=== PATIENT | female | born 1955 | race Caucasian/White ===

== ENCOUNTER → 2018-04-04 15:13 | Outpatient (CLI) | payer MEDICARE, SELFPAY | PROVIDERS: Visit Provider Podiatrist | DX: B35.3 Tinea pedis (principal) | CPT/HCPCS: 87102; 87206; 87220 ==

== ENCOUNTER → 2018-05-30 13:46 | Outpatient (CLI) | payer MEDICARE, SELFPAY | PROVIDERS: Visit Provider Nurse Practitioner Family | DX: R30.0 Dysuria (principal) | CPT/HCPCS: 87086; 87088; 87186 ==

== ENCOUNTER 2019-05-30 14:00 | Outpatient (RCR) | payer MEDICARE, SELFPAY | END 2019-05-30 14:05 | disposition home or self-care (01) | LOC: PT 14:00 | PROVIDERS: PCP Emergency Medicine; Visit Provider Family Medicine | DX: M54.5 Low back pain (principal) | CPT/HCPCS: 97010; 97014; 97035; 97110; 97163; G0283 ==

== ENCOUNTER 2020-04-02 20:25 | Emergency (ER) | payer MEDICARE, MEDICAID, SELFPAY ==
[2020-04-02 20:39] VITALS: BP 147/88; PULSE 93; RESP 18; TEMP 37; O2SAT 97; BMI 24.6
[2020-04-02 20:42] VITALS: BP 147/88; PULSE 93; RESP 18; TEMP 37; O2SAT 97; BMI 24.6
--- NOTE | 2020-04-02 20:45 | HMH.EDUTC ---
[facility] Disposition Clinical Impression: Otitis externa Qualifiers: Otitis externa type: unspecified type Chronicity: unspecified Laterality: right Qualified Code(s): H60.91 - Unspecified otitis externa, right ear Disposition: Home, Self-Care Condition on Discharge: Good Instructions: Otitis Externa, DI for Otitis Externa, How to Use Ear Drops, How to Instill Ear Drops Additional Instructions: You was given remainder bottle of Neomycin and Polymyxin B sulfates and Hydrocortisone Suspension ear drops, 4 drops in right ear 3 times daily for 7 days Use ear wick as demonstrated to help get medication inside of ear if you are having problems Follow up with Family Doctor if no improvement or any worsening of symptoms Return if needed Straight to ER if any life threatening symptoms Referrals: Casie Yan [Primary Care Provider] - As needed Time of Disposition: 21:05 Medical Decision Making - Jason Inquiry Pt receiving controlled substance: No Jason was queried for this patient: No Vital Signs: 04/02/20 20:39 04/02/20 20:42 Temperature 98.6 F 98.6 F Temperature Source Oral Oral Pulse Rate [Right] 93 H 93 H Respiratory Rate 18 18 Blood Pressure [Right Arm] 147/88 H 147/88 H Blood Pressure Mean [Right Arm] 107 107 Blood Pressure Source [Right Arm] Automatic Cuff Automatic Cuff Blood Pressure Position [Right Arm] Sitting Sitting 02 Sat by Pulse Oximetry 97 97 Oxygen Delivery Method Room Air Room Air Medical Decision Narrative: Medication discussed with pharmacy to insure safety where TM could not be visualized and use of Cortisporin suspension instead of solution where TM not visible Medication obtained from ED and patient educated on how to apply ear drops, how to make wick and application Patient and family verbalized understanding Patient given remainder of bottle of ear drops to complete [address] [facility] HPI - General Stated complaint: Right ear pain Time Seen by Provider: 04/02/20 20:45 Mode of Arrival: Ambulatory Source of Information: Patient Limitations: No Limitations Description of Symptoms (Recalled from Triage Doc. by RN): Right ear pain started yesterday HEENT Symptoms (Recalled from RN notes): Yes Resp Symptoms (Recalled from RN notes): No Skin Symptoms (Recalled from RN notes): No MS Symptoms (Recalled from RN notes): No Functional Status (Recalled from RN notes): wnl - History of Present Illness Provider Complaint: Patient states that she has been having pain in her right ear since yesterday States that she has tried some peroxide in it and used some of the ear wax drops and nothing has helped State that she went to bible study earlier and it started throbbing so she came in to get it checked - Related Data Home Medications Medication Instructions Recorded Confirmed aspirin 81 mg tablet,delayed 81 mg PO DAILY tab 08/15/17 05/30/18 release Previous Rx's Medication Instructions Recorded urea 40 % topical cream 1 applic TOPICAL BID #60 applic 05/18/18 cetirizine 10 mg tablet 10 mg PO DAILY #30 tab 05/22/18 fluticasone propionate 50 1 spray INTRANASAL QDAY 30 Days 05/22/18 mcg/actuation nasal #9.9 g spray,suspension metoprolol tartrate 50 mg tablet 50 mg PO DAILY #90 tab 05/30/18 sulfamethoxazole 800 1 tab PO BID 10 Days #20 tab 05/30/18 mg-trimethoprim 160 mg tablet triamterene 37.5 1 tab PO DAILY #90 tab 07/19/18 mg-hydrochlorothiazide 25 mg tablet Allergies Allergy/AdvReac Type Severity Reaction Status Date / Time Penicillins [PENICILLINS] Allergy Unknown Verified 05/30/18 10:09 BEE,BUMBLE Allergy Unknown Uncoded 05/30/18 10:09 - Worker's Comp Is this a Worker's Comp case?: No [facility] History - Hepatitis A Screen Drug use history?: No High risk sexual behaviors?: No History of sexually transmitted infection?: No Currently employed?: No Childcare worker?: No Do you have indoor plumbing?: Yes Do you have electricity?: Yes Attestation statement:: Rola ortiz
[2020-04-02 20:54] VITALS: BP 147/88; PULSE 93; RESP 18; TEMP 37; O2SAT 97
== END 2020-04-02 21:06 | disposition home or self-care (01) ==
PROVIDERS: Emergency Provider Nurse Practitioner; PCP Family Medicine
DX: H60.91 Unspecified otitis externa, right ear (principal); F41.8 Other specified anxiety disorders
CPT/HCPCS: 99201

== ENCOUNTER 2020-12-14 20:01 | Emergency (ER) | payer MEDICARE, MEDICAID, SELFPAY ==
[2020-12-14 21:58] VITALS: BP 0/0; PULSE 0; RESP 0; TEMP -17.7; TEMP 0
== END 2020-12-14 21:59 | disposition left against medical advice (07) ==
LOC: ER 20:09
PROVIDERS: Emergency Provider Emergency Medicine; PCP Family Medicine
DX: Z53.21 Procedure and treatment not carried out due to patient leaving prior to being seen by health care provider (principal)
CPT/HCPCS: G0463; 99211

== ENCOUNTER 2021-07-02 12:48 | Emergency (ER) | payer MEDICARE, MEDICAID, SELFPAY ==
[2021-07-02 12:57] VITALS: BP 151/90; PULSE 83; RESP 17; TEMP 36.6; O2SAT 97; BMI 23.8
--- NOTE | 2021-07-02 12:59 | HMH.EDGENADL ---
ED Disposition Clinical Impression: Chalazion left upper eyelid Disposition: Home, Self-Care Condition on Discharge: Fair Instructions: DI for Chalazion Additional Instructions: Keflex as prescribed. Cool compresses 10 minutes 4 times a day. See Dr. Dillon at the [facility] tomorrow evening or Tuesday morning. Call tomorrow morning to make that appointment: [facility] [address] [place] [address] Prescriptions: cephALEXin [cephALEXin 500mg capsule*] 500 mg PO Q6H #28 cap Transmission Status: Pending to [id number] Referrals: Casie Yan [Primary Care Provider] - - Critical Care Critical Care Time: No Attestation: On , the high probability of a clinically significant, sudden or life threatening deterioration of the following system(s) required my full and direct attention, intervention and personal management. The time I documented below is in addition to time spent performing reported procedures but includes the following listed in this critical care notation. Medical Decision Making - Jason Inquiry Pt receiving controlled substance: No Vital Signs: 07/02/21 12:57 Temperature 97.8 F Temperature Source Oral Pulse Rate [Left Radial] 83 Respiratory Rate 17 Blood Pressure [Right Arm] 151/90 H Blood Pressure Mean [Right Arm] 110 02 Sat by Pulse Oximetry 97 Oxygen Delivery Method Room Air - Physician Consults Physician Consulted: Santana Time: 13:26 Reason -: Opthalmology Eval/Care Comment/Response: She has viewed an image of the patient's eye. She request patient be started on Keflex. Patient reports an allergy to penicillin, but says it only makes her sick with nausea and vomiting and she has taken Keflex in the past without problems. Also recommends cool compresses and follow-up in our office tomorrow evening or Tuesday morning. General Adult HPI - General Stated complaint: left eye swollen and red, no accident Time Seen by Provider: 07/02/21 12:59 - History of Present Illness HPI narrative: Complains of a swollen red left eyelid for 3 days. Denies any pain. States that it makes it hard to open up her eye, but otherwise no visual disturbance. No fever. No double vision. She tried to jose guadalupe it herself with a needle sterilized with alcohol but no pus was obtained. - Related Data Home Medications Medication Instructions Recorded Confirmed aspirin 81 mg tablet,delayed 81 mg PO DAILY tab 08/15/17 05/30/18 release Previous Rx's Medication Instructions Recorded urea 40 % topical cream 1 applic TOPICAL BID #60 applic 05/18/18 cetirizine 10 mg tablet 10 mg PO DAILY #30 tab 05/22/18 fluticasone propionate 50 1 spray INTRANASAL QDAY 30 Days 05/22/18 mcg/actuation nasal #9.9 g spray,suspension metoprolol tartrate 50 mg tablet 50 mg PO DAILY #90 tab 05/30/18 sulfamethoxazole 800 1 tab PO BID 10 Days #20 tab 05/30/18 mg-trimethoprim 160 mg tablet triamterene 37.5 1 tab PO DAILY #90 tab 07/19/18 mg-hydrochlorothiazide 25 mg tablet cephALEXin [cephALEXin 500mg 500 mg PO Q6H #28 cap 07/02/21 capsule*] Allergies Allergy/AdvReac Type Severity Reaction Status Date / Time Penicillins [PENICILLINS] Allergy Unknown Verified 05/30/18 10:09 BEE,BUMBLE Allergy Unknown Uncoded 05/30/18 10:09 [facility] History - Hepatitis A Screen Attestation statement:: This patient has been screened for Hepatitis A risk factors. I have reviewed the patient's past medical history: Yes Medical History: Reports:: Anxiety, Depression, Hypertension, Migraine Other Surgeries: Yes: Cholecystectomy, Hysterectomy-Total, Tubal Ligation, Other Amputation: No Fractures: No - Social History Smoking Status: Former smoker Alcohol Intake: never Alcohol Intake Frequency:: other Substance Use Type: denies use Occupational Status: other Housing: apartment Household Members: none - Psychiatric History Pschychiatric History:: Report
--- NOTE | 2021-07-02 13:07 | PC.NURSE ---
Dr Santana speaking to Dr Alves at [facility]
--- NOTE | 2021-07-02 13:35 | PC.NURSE ---
visual acuity L- 20/30 R- 20/40 Both- 20/30
[2021-07-02 13:57] VITALS: BP 144/87; PULSE 81; RESP 17; TEMP 36.6; O2SAT 97
== END 2021-07-02 14:00 | disposition home or self-care (01) ==
PROVIDERS: Emergency Provider Emergency Medicine; PCP Family Medicine
DX: H00.14 Chalazion left upper eyelid (principal); G43.709 Chronic migraine without aura, not intractable, without status migrainosus; F41.8 Other specified anxiety disorders; I10 Essential (primary) hypertension; Z88.0 Allergy status to penicillin
CPT/HCPCS: 99281; 99282

== ENCOUNTER 2022-09-11 16:24 | Emergency (ER) | payer MEDICARE, MEDICAID, SELFPAY ==
[2022-09-11 16:33] VITALS: BP 169/74; PULSE 82; O2SAT 97
[2022-09-11 16:40] VITALS: BP 169/74; PULSE 82; RESP 20; TEMP 36.4; O2SAT 97; BMI 25.0
--- NOTE | 2022-09-11 16:51 | XR_ITS ---
PROCEDURE INFORMATION: Exam: XR Chest Exam date and time: 09/11/2022 5:29 PM Age: 67 years old Clinical indication: Dyspnea; Additional info: SOA TECHNIQUE: Imaging protocol: Radiologic exam of the chest. Views: 1 view. COMPARISON: CR CXR CHEST(2 VIEWS-NOT PORTABLE) 01/20/2017 10:32 PM FINDINGS: Lungs: Unremarkable. No consolidation. Pleural spaces: Unremarkable. No pleural effusion. No pneumothorax. Heart/Mediastinum: Unremarkable. No cardiomegaly. Bones/joints: Unremarkable. IMPRESSION: No acute findings.
--- NOTE | 2022-09-11 16:53 | HMH.EDGENADL ---
Discharge Plan Disposition Patient Disposition: Home, Self-Care Chief Complaint: Shortness of Breath/Dyspnea Prescriptions Prescriptions: No Action omeprazole 20 mg capsule,delayed release(DR/EC) 20 mg PO DAILY rosuvastatin 5 mg tablet 5 mg PO DAILY Label Comments: TAKE 1 TABLET BY MOUTH ONCE DAILY clotrimazole-betamethasone 1-0.05 % cream 1 applic topical BID Qty: 45 1RF furosemide [Lasix] 20 mg tablet 20 mg PO DAILY Qty: 10 0RF lisinopril 20 mg tablet 20 mg PO DAILY Qty: 30 0RF Rx Instructions: Stop amlodipine aspirin [Adult Low Dose Aspirin] 81 mg tablet,delayed release (DR/EC) 81 mg PO DAILY Referrals Follow up/Referrals: Trav Alexandre MD [Primary Care Provider] - See instructions Activity Restrictions/Add. Instructions Additional Instructions/Restrictions: At this time was felt you are safe to be discharged home. If new or worsening symptoms please do not hesitate to return the emergency department. 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 Clinical Impressions Clinical Impression: Leg swelling Discharge ED Provider: Jeffery Weaver General Adult HPI General Chief complaint: Shortness of Breath/Dyspnea Stated complaint: SOA,Weakness,possible high blood pressure Time Seen by Provider: 09/11/22 16:45 Mode of Arrival: Ambulatory Source of Information: Patient Limitations: No Limitations Description of Symptoms (Recalled from ER Triage Doc. by RN): pt to ed c/o SOA and BLE swelling x3 days. pt states she seen her pcp and was told she has CHF and was started on lasix. pt states the lasix made her pee too much. History of Present Illness HPI narrative: Patient is a 67-year-old female with past medical history of hypertension who presents emergency department for evaluation of leg swelling. Over the last 4 days patient has noticed bilateral lower extremity swelling. Over months she has had dyspnea upon exertion. She denies chest pain, fevers, acute rashes or arthralgias, diarrhea, abdominal pain. Per chart review patient was instructed to stop amlodipine for which she states she has not taken amlodipine in 5 months, she takes lisinopril for her hypertension and was given Lasix for 10 days for which she has been compliant for the past 24 hours. She has had good urine output with Lasix administration. Due to persistent swelling she presents here for continued evaluation. Related Data Home Medications Medication Instructions Recorded Confirmed aspirin 81 mg tablet,delayed 81 mg PO DAILY 08/15/17 09/10/22 release (Adult Low Dose Aspirin) omeprazole 20 mg capsule,delayed 20 mg PO DAILY 08/11/22 09/10/22 release rosuvastatin 5 mg tablet 5 mg PO DAILY 08/11/22 09/10/22 Previous Rx's Medication Instructions Recorded clotrimazole-betamethasone 1 1 applic topical BID lesion #45 09/08/22 %-0.05 % topical cream grams furosemide 20 mg tablet (Lasix) 20 mg PO DAILY #10 tabs 09/10/22 lisinopril 20 mg tablet 20 mg PO DAILY #30 tabs 09/10/22 Allergies Allergy/AdvReac Type Severity Reaction Status Date / Time Penicillins [PENICILLINS] Allergy Unknown Verified 09/10/22 09:04 BEE,BUMBLE Allergy Unknown Uncoded 08/11/22 08:43 [facility] Disclaimer: The information contained in this section may have been updated after the patient was seen, as this information can be updated by other users. Medical History GERD (gastroesophageal reflux disease) Social History Smoking Status: Current every day smoker alcohol intake: never substance use type: denies use current occupational status: other Travel in the last 8 weeks: None household members: none housing: apartment ROS Obtained: Yes Systems reviewed as appropriate & no additional complaints except as documented Physical Exam General General appe
--- NOTE | 2022-09-11 16:55 | ECG_ITS ---
APPROVED REPORT Exam: Resting ECG HR:77 bpm ECG Measurements Heart Rate 77 AXES LA 190 P 50 QRSd 83 QRS 2 QT 386 T 40 QTc 418 Conclusion SINUS RHYTHM WITH SINUS ARRHYTHMIA Isolated Q in III BORDERLINE ECG UNCONFIRMED REPORT Electronically signed by : Bertram Finnegan MD 09/12/2022 13:39:12
[2022-09-11 17:00] VITALS: BP 165/90; PULSE 77; O2SAT 95
[2022-09-11 17:30] VITALS: BP 165/68; PULSE 78; O2SAT 96
[2022-09-11 17:53] LABS: Basophils % 0.3 % (0.1-2.0); Eosinophils # 0.2 K/mm3 (0.0-0.4); Eosinophils % 3.1 % (0.1-12.0); Hematocrit 40.9 % (37.0-47.0); Lymphocytes # 2.4 K/mm3 (0.7-4.5); Lymphocytes % 30.9 % (10-50); Mean Corpuscular HGB Conc 31.7 g/dL (31.8-35.4); Mean Corpuscular Hemoglobin 28.6 pg (27.0-31.2); Mean Corpuscular Volume 90.4 fl (81-99); Mean Platelet Volume 9.6 fl (7.4-10.4); Monocytes # 0.4 K/mm3 (0.1-1.0); Monocytes % 5.5 % (1.7-9.3); Neutrophils # 4.7 K/mm3 (1.8-7.8); Neutrophils % 60.2 % (37.0-80.0); Platelet Count 113 K/mm3 (142-424); Red Blood Count 4.53 M/mm3 (4.20-5.40); Red Cell Distribution Width 14.2 % (11.5-17.5); White Blood Count 7.9 K/mm3 (4.8-10.8)
[2022-09-11 18:01] LABS: Chloride 97 mmol/L (98-107); Potassium 4.7 mmoL/L (3.5-5.1); Sodium 137 mmol/L (136-145)
[2022-09-11 18:04] LABS: Alanine Aminotransferase 20 U/L (12-78); Albumin Level 4.2 g/dl (3.5-5.0); Albumin/Globulin Ratio 1.3 (1.1-1.8); Alkaline Phosphatase 80 U/L (38-126); Anion Gap 15.7 mEq/L (5-15); Aspartate Amino Transferase 37 U/L (14-36); Bilirubin,Total 0.8 mg/dl (0.2-1.3); Carbon Dioxide 29 mmol/L (22.0-30.0); Globulin 3.3 g/dL (1.3-3.2); Total Protein,Serum 7.5 g/dl (6.3-8.2)
[2022-09-11 18:05] LABS: Calcium 9.2 mg/dl (8.4-10.2); Glucose 88 mg/dl (74-100)
[2022-09-11 18:14] LABS: NT Pro Brain Natriuretic Pep. 23.6 pg/mL (0-125)
[2022-09-11 18:19] LABS: Blood Urea Nitrogen 22 mg/dl (7-17); Creatinine Clearance Estimated 55 mL/min (50-200); Estimated Glomerular Filt Rate 50 ml/min (>60); GFR (African American) 60 ML/MIN (>60)
[2022-09-11 18:20] LABS: Troponin I < 0.01 ng/ml (0.00-0.034)
[2022-09-11 19:21] VITALS: BP 162/79; PULSE 70; RESP 20; TEMP 36.4; O2SAT 96
== END 2022-09-11 19:22 | disposition home or self-care (01) ==
PROVIDERS: Emergency Provider Emergency Medicine; PCP Emergency Medicine
DX: R06.02 Shortness of breath (principal); R22.43 Localized swelling, mass and lump, lower limb, bilateral; F17.200 Nicotine dependence, unspecified, uncomplicated
CPT/HCPCS: 71045; 80053; 83880; 84484; 85025; 93005; 93308; 99285

== ENCOUNTER → 2022-09-23 11:05 | Outpatient (CLI) | payer MEDICARE, MEDICAID, SELFPAY ==
[2022-09-23 15:34] LABS: Anion Gap 18.5 mEq/L (5-15); Blood Urea Nitrogen 26 mg/dl (7-17); Calcium 9.5 mg/dl (8.4-10.2); Carbon Dioxide 25 mmol/L (22.0-30.0); Chloride 98 mmol/L (98-107); Estimated Glomerular Filt Rate 62 ml/min (>60); GFR (African American) 76 ML/MIN (>60); Glucose 93 mg/dl (74-100); Potassium 4.5 mmoL/L (3.5-5.1); Sodium 137 mmol/L (136-145)
== END ==
PROVIDERS: PCP Nurse Practitioner Family; Visit Provider Nurse Practitioner Family
DX: M79.89 Other specified soft tissue disorders (principal); R60.0 Localized edema
CPT/HCPCS: 80048

== ENCOUNTER 2022-10-27 13:32 | Emergency (ER) | payer MEDICARE, MEDICAID, SELFPAY ==
--- NOTE | 2022-10-27 13:29 | ECG_ITS ---
APPROVED REPORT Exam: Resting ECG HR:90 bpm ECG Measurements Heart Rate 90 AXES SC 165 P 60 QRSd 85 QRS 28 QT 347 T 53 QTc 395 Conclusion SINUS RHYTHM NORMAL ECG UNCONFIRMED REPORT Electronically signed by : Bertram Finnegan MD 10/29/2022 16:24:21
[2022-10-27 13:33] VITALS: BP 125/97; PULSE 89; RESP 16; TEMP 36.9; O2SAT 96; BMI 25.4
--- NOTE | 2022-10-27 14:00 | XR_ITS ---
FINAL REPORT CLINICAL HISTORY: sob COMPARISON: 09/11/2022 FINDINGS: SINGLE-VIEW CHEST The heart size is normal. The mediastinum is normal. The lungs are clear. There is no pneumothorax. IMPRESSION: No acute cardiopulmonary process. Reviewed, Interpreted and Dictated by Manuel Mcknight III, MD Transcribed by Farzana Stockton Authenticated and [facility]
--- NOTE | 2022-10-27 14:03 | HMH.EDGENADL ---
Discharge Plan Disposition Patient Disposition: Home, Self-Care Condition: Fair Chief Complaint: Chest Pain Prescriptions Prescriptions: No Action clotrimazole-betamethasone 1-0.05 % cream 1 applic topical BID Qty: 45 1RF furosemide [Lasix] 20 mg tablet 20 mg PO DAILY Qty: 10 0RF lisinopril 20 mg tablet 20 mg PO DAILY Qty: 30 0RF Rx Instructions: Stop amlodipine omeprazole 20 mg capsule,delayed release(DR/EC) 20 mg PO DAILY Qty: 90 0RF rosuvastatin 5 mg tablet 5 mg PO DAILY Qty: 90 0RF epinephrine 0.3 mg/0.3 mL syringe 0.3 mg SQ Q5-15M PRN (Reason: anaphylaxis) Qty: 2 2RF Rx Instructions: do not exceed 2 doses per episode aspirin [Adult Low Dose Aspirin] 81 mg tablet,delayed release (DR/EC) 81 mg PO DAILY azithromycin 250 mg tablet See Rx Instructions PO .COMPLEX Qty: 6 0RF Rx Instructions: For 250 mg dose pack: take 500 mg today (day 1), then 250 mg for 4 days (days 2-5) PO Referrals Follow up/Referrals: Trav Alexandre MD [Primary Care Provider] - See instructions Clinical Impressions Clinical Impression: Atypical chest pain Instructions Patient Instructions: DI for Atypical Chest Pain Discharge ED Provider: Silvestre Jones Adult HPI General Chief complaint: Chest Pain Stated complaint: chest pain Time Seen by Provider: 10/27/22 15:00 Mode of Arrival: Ambulatory Source of Information: Patient Limitations: No Limitations Description of Symptoms (Recalled from ER Triage Doc. by RN): pt to the ED with midsternal chest pain after getting into an arguement with her daughter. the pt stated she became upset and began to feel a pressure in her center chest. History of Present Illness HPI narrative: This is a 67-year-old white female with a history of GERD anxiety hypertension who presents to the emergency room with an episode of substernal chest pain described as pressure burning nonradiating. Patient said the pain started after getting into an argument with her daughter. There is no associated shortness of breath nausea vomiting or diaphoresis no orthopnea or pedal edema no fevers or chills. As I was talking to the patient she said her pain was getting better. Related Data Home Medications Medication Instructions Recorded Confirmed aspirin 81 mg tablet,delayed 81 mg PO DAILY 08/15/17 10/18/22 release (Adult Low Dose Aspirin) Previous Rx's Medication Instructions Recorded clotrimazole-betamethasone 1 1 applic topical BID lesion #45 09/27/22 %-0.05 % topical cream grams epinephrine 0.3 mg/0.3 mL 0.3 mg (0.3 mL) SQ Q5-15M PRN 09/27/22 injection syringe anaphylaxis #2 ea furosemide 20 mg tablet (Lasix) 20 mg PO DAILY #10 tabs 09/27/22 lisinopril 20 mg tablet 20 mg PO DAILY #30 tabs 09/27/22 omeprazole 20 mg capsule,delayed 20 mg PO DAILY #90 caps 09/27/22 release rosuvastatin 5 mg tablet 5 mg PO DAILY #90 tabs 09/27/22 azithromycin 250 mg tablet See Rx Instructions PO .COMPLEX #6 10/18/22 tabs Allergies Allergy/AdvReac Type Severity Reaction Status Date / Time Penicillins [PENICILLINS] Allergy Unknown Verified 10/18/22 14:02 BEE,BUMBLE Allergy Unknown Uncoded 10/18/22 14:02 [facility] Disclaimer: The information contained in this section may have been updated after the patient was seen, as this information can be updated by other users. Medical History (Updated 10/27/22 @ 16:00 by Silvestre Jones MD) Acute left otitis media GERD (gastroesophageal reflux disease) Impacted cerumen of left ear Social History Smoking Status: Current every day smoker alcohol intake: never substance use type: denies use current occupational status: other Travel in the last 8 weeks: None household members: none housing: apartment ROS Obtained: Yes All systems reviewed & no additional complaints except as documented Skin no rash or lesions HEENT no runny
[2022-10-27 14:05] VITALS: BP 146/83; PULSE 79; RESP 15; O2SAT 97
--- NOTE | 2022-10-27 14:05 | PC.NURSE ---
PT MEDICATED PER EMAR, UPDATED AT THIS TIME ON POC. NO NEEDS VOICED
[2022-10-27 14:11] LABS: Chloride 102 mmol/L (98-107)
[2022-10-27 14:12] LABS: Potassium 4.7 mmoL/L (3.5-5.1); Sodium 140 mmol/L (136-145)
[2022-10-27 14:14] LABS: Alanine Aminotransferase 27 U/L (12-78); Alkaline Phosphatase 87 U/L (38-126); Anion Gap 13.7 mEq/L (5-15); Aspartate Amino Transferase 39 U/L (14-36); Bilirubin,Total 0.4 mg/dl (0.2-1.3); Blood Urea Nitrogen 26 mg/dl (7-17); Carbon Dioxide 29 mmol/L (22.0-30.0); Creatinine Clearance Estimated 51 mL/min (50-200); Estimated Glomerular Filt Rate 45 ml/min (>60); GFR (African American) 54 ML/MIN (>60)
[2022-10-27 14:15] LABS: Albumin Level 4.5 g/dl (3.5-5.0); Albumin/Globulin Ratio 1.3 (1.1-1.8); Calcium 9.5 mg/dl (8.4-10.2); Globulin 3.6 g/dL (1.3-3.2); Glucose 109 mg/dl (74-100); Total Protein,Serum 8.1 g/dl (6.3-8.2)
[2022-10-27 14:16] LABS: Basophils % 0.4 % (0.1-2.0); Eosinophils # 0.2 K/mm3 (0.0-0.4); Eosinophils % 2.2 % (0.1-12.0); Hematocrit 42.6 % (37.0-47.0); Hemoglobin 13.4 g/dL (12.2-16.2); Lymphocytes # 2.3 K/mm3 (0.7-4.5); Lymphocytes % 25.2 % (10-50); Mean Corpuscular HGB Conc 31.6 g/dL (31.8-35.4); Mean Corpuscular Hemoglobin 28.6 pg (27.0-31.2); Mean Corpuscular Volume 90.6 fl (81-99); Mean Platelet Volume 7.6 fl (7.4-10.4); Monocytes # 0.5 K/mm3 (0.1-1.0); Monocytes % 5.3 % (1.7-9.3); Neutrophils # 6.1 K/mm3 (1.8-7.8); Neutrophils % 66.9 % (37.0-80.0); Platelet Count 275 K/mm3 (142-424); Red Blood Count 4.71 M/mm3 (4.20-5.40); Red Cell Distribution Width 13.9 % (11.5-17.5); White Blood Count 9.1 K/mm3 (4.8-10.8)
[2022-10-27 14:23] LABS: Troponin I < 0.01 ng/ml (0.00-0.034)
[2022-10-27 14:30] VITALS: BP 148/81; PULSE 84; RESP 14; O2SAT 94
[2022-10-27 14:59] VITALS: BP 147/95; PULSE 95; RESP 20; O2SAT 96
[2022-10-27 15:00] VITALS: BP 160/89; PULSE 95; RESP 18; O2SAT 96
[2022-10-27 16:06] VITALS: BP 160/89; PULSE 95; RESP 16; TEMP 36.7
== END 2022-10-27 16:10 | disposition home or self-care (01) ==
PROVIDERS: Emergency Provider Emergency Medicine; PCP Emergency Medicine
DX: R07.89 Other chest pain (principal); K21.9 Gastro-esophageal reflux disease without esophagitis; F41.9 Anxiety disorder, unspecified; F17.200 Nicotine dependence, unspecified, uncomplicated; I10 Essential (primary) hypertension
CPT/HCPCS: 71045; 80053; 83880; 84484; 85025; 93005; 99285

== ENCOUNTER → 2022-11-30 19:09 | Outpatient (CLI) | payer MEDICARE, MEDICAID, SELFPAY | PROVIDERS: PCP Emergency Medicine; Visit Provider Emergency Medicine | DX: R32 Unspecified urinary incontinence (principal); B96.29 Other Escherichia coli [E. coli] as the cause of diseases classified elsewhere | CPT/HCPCS: 87086; 87088; 87186 ==

== ENCOUNTER 2023-06-09 09:23 | Outpatient (CLI) | payer MEDICARE, MEDICAID, SELFPAY ==
[2023-06-09 09:42] LABS: Basophils # 0.1 K/mm3 (0-0.2); Basophils % 0.9 % (0.1-2.0); Eosinophils # 0.3 K/mm3 (0.0-0.4); Eosinophils % 4.1 % (0.1-12.0); Hematocrit 41.4 % (37.0-47.0); Hemoglobin 14.1 g/dL (12.2-16.2); Lymphocytes # 2.3 K/mm3 (0.7-4.5); Lymphocytes % 30.9 % (10-50); Mean Corpuscular HGB Conc 33.9 g/dL (31.8-35.4); Mean Corpuscular Hemoglobin 29.9 pg (27.0-31.2); Mean Corpuscular Volume 88.1 fl (81-99); Mean Platelet Volume 7.6 fl (7.4-10.4); Monocytes # 0.3 K/mm3 (0.1-1.0); Monocytes % 4.5 % (1.7-9.3); Neutrophils # 4.4 K/mm3 (1.8-7.8); Neutrophils % 59.6 % (37.0-80.0); Platelet Count 225 K/mm3 (142-424); Red Cell Distribution Width 14.3 % (11.5-17.5); White Blood Count 7.3 K/mm3 (4.8-10.8)
[2023-06-09 10:15] LABS: Chloride 103 mmol/L (98-107); Potassium 3.7 mmoL/L (3.5-5.1); Sodium 139 mmol/L (136-145)
[2023-06-09 10:17] LABS: Alanine Aminotransferase 20 U/L (12-78); Aspartate Amino Transferase 24 U/L (14-36); Blood Urea Nitrogen 15 mg/dl (7-17); Estimated Glomerular Filt Rate 55 ml/min (>60); GFR (African American) 67 ML/MIN (>60)
[2023-06-09 10:18] LABS: Albumin Level 4.1 g/dl (3.5-5.0); Alkaline Phosphatase 88 U/L (38-126); Anion Gap 10.7 mEq/L (5-15); Bilirubin,Direct 0.6 mg/dl (0.0-0.4); Bilirubin,Total 0.6 mg/dl (0.2-1.3); Calcium 9.8 mg/dl (8.4-10.2); Carbon Dioxide 29 mmol/L (22.0-30.0); Chol/HDL Ratio 2.3 (1-3.5); Cholesterol 153 mg/dl (140-200); Glucose 98 mg/dl (74-100); HDL Cholesterol 66 mg/dl (40-60); Magnesium 1.8 mg/dl (1.6-2.3); Total Protein,Serum 7.1 g/dl (6.3-8.2); Triglycerides 78 mg/dl (30-150); VLDL Cholesterol 16 mg/dL (0-40)
[2023-06-09 10:36] LABS: Direct LDL Cholesterol 66.14 mg/dL (100-129)
[2023-06-09 10:52] LABS: Thyroid Stimulating Hormone 0.82 uIU/mL (0.465-4.68)
== END 2023-06-09 23:59 ==
LOC: LAB 09:24
PROVIDERS: PCP Nurse Practitioner Family; Visit Provider Nurse Practitioner
DX: E78.5 Hyperlipidemia, unspecified (principal); I10 Essential (primary) hypertension; Z79.899 Other long term (current) drug therapy
CPT/HCPCS: 36415; 80048; 80061; 80076; 83735; 84439; 84443; 85025

== ENCOUNTER 2023-06-28 13:42 | Outpatient (CLI) | payer MEDICARE, MEDICAID, SELFPAY ==
--- NOTE | 2023-06-28 13:43 | CA_ITS ---
APPROVED REPORT EXAM: Comprehensive 2D, Doppler, and color-flow Echocardiogram Alkylation Operator: Krysta Marvin RVT Ht: 5 ft 6 in Wt: 145lbs BSA: 1.74 BP: 133/73 mmHg Indications: HTN,SMOKER,EDEMA,HLD,HTN 2D Dimensions LA Volume 29.60 mL LA Volume Index 16.91 mL/m2 (M/F) 16-34 M-Mode Dimensions RVDd 2.38 cm (0.9-2.6) LA Diam 3.34 cm (1.9-4.0) LVDd 3.79 cm (3.5-5.7) LVDs 2.50 cm (3.5-5.7) IVSd 1.09 cm (0.6-1.1) PWd 0.56 cm (0.6-1.1) EF (Teich) 63.80% FS 34.00% EDV (Teich) 61.60 mL TAPSE 2.22 (<1.7) ESV (Teich) 22.30 mL LV Diastology E Decel Time 243 (160-240 msec) E/A Ratio 0.7 Aortic Valve VALERI Index 1.15 cm2/m2 AoV Peak Alphonse. 138.0 (50-130 cm/s) AO Peak GR. 7.60 mmHg AO Mean GR. 5.10 (<5 mmHg) AO VTI 33.6 (18-25 cm) VALERI (VTI) 2.05 (2.5-4.5 cm2) Mitral Valve MV E Max Alphonse. 70.0 (40-130 cm/s) MV A Velocity 107.0 (40-130 cm/s) E/A Ratio 0.65 MV PHT 71.0 ms Pulmonary Valve PV Peak Velocity 85.0 (50-150 cm/s) Left Ventricle The left ventricle is normal size. The left ventricular systolic function is normal. The left ventricular ejection fraction is within the normal range. There is increased LV wall thickness. Proximal septal thickening is noted. There is normal LV segmental wall motion. Transmitral Doppler flow pattern suggests impaired LV relaxation. LVEF is 60%. Right Ventricle The right ventricle is normal size. The right ventricular systolic function is normal. Atria The left atrium size is normal. The right atrium size is normal. There is no Doppler evidence of interatrial shunt. Aortic Valve The aortic valve opens well. There is no aortic valvular stenosis. Trace aortic regurgitation. Mitral Valve The mitral valve is normal in structure. No evidence of mitral valve stenosis. Trace mitral regurgitation. Tricuspid Valve The tricuspid valve leaflets are thin and pliable. Trace tricuspid regurgitation. RVSP is normal. Pulmonic Valve The pulmonary valve is normal in structure. Trace pulmonic regurgitation. Great Vessels The aortic root is normal in size. IVC is normal in size and collapses >50% with inspiration. Pericardium There is no pericardial effusion. Other Information Study Quality: Fair Conclusion Normal biventricular systolic function. No significant valvular stenosis or regurgitation. Electronically signed by : Josefina Miller MD 06/29/2023 12:30:31
== END 2023-06-28 23:59 ==
LOC: RT 13:43
PROVIDERS: PCP Nurse Practitioner Family; Visit Provider Nurse Practitioner
DX: E78.5 Hyperlipidemia, unspecified (principal); I10 Essential (primary) hypertension; R94.31 Abnormal electrocardiogram [ECG] [EKG]
CPT/HCPCS: 93306

== ENCOUNTER 2025-04-22 16:19 | Outpatient (CLI) | payer MEDICARE, SELFPAY ==
--- NOTE | 2025-04-22 16:22 | XR_ITS ---
PROCEDURE INFORMATION: Exam: XR Left Ribs with PA Chest Exam date and time: 04/22/2025 4:23 PM Age: 70 years old Clinical indication: Injury or trauma; Fall; Rib area, left side; Blunt trauma; Additional info: L rib pain, fall TECHNIQUE: Imaging protocol: Radiologic exam of the left ribs with PA chest. Views: 3 views COMPARISON: CR XR CHEST PORTABLE 10/27/2022 2:30 PM FINDINGS: Lungs: Clear lungs Pleural spaces: No pleural effusion. No pneumothorax. Heart/Mediastinum: Heart size is normal. Bones/joints: No acute displaced rib fracture or other acute osseous abnormality. IMPRESSION: No acute displaced rib fracture.
== END 2025-04-22 23:59 | disposition home or self-care (01) ==
LOC: RAD 16:20
PROVIDERS: PCP Nurse Practitioner Family; Visit Provider Student in an Organized Health Care Education/Training Program
DX: R07.89 Other chest pain (principal); W19.XXXA Unspecified fall, initial encounter
CPT/HCPCS: 71101

== ENCOUNTER 2025-05-08 19:01 | Emergency (ER) | payer MEDICARE, SELFPAY ==
[2025-05-08 19:02] VITALS: BP 118/68; PULSE 66; RESP 16; TEMP 36.7; O2SAT 97; BMI 24.2
--- NOTE | 2025-05-08 19:22 | CT_ITS ---
PROCEDURE INFORMATION: Exam: CT Head Without Contrast Exam date and time: 05/08/2025 7:55 PM Age: 70 years old Clinical indication: Injury or trauma; Fall; Additional info: Fall, forehead lac TECHNIQUE: Imaging protocol: Computed tomography of the head without contrast. Radiation optimization: All CT scans at this facility use at least one of these dose optimization techniques: automated exposure control; mA and/or kV adjustment per patient size (includes targeted exams where dose is matched to clinical indication); or iterative reconstruction. COMPARISON: No relevant prior studies available. FINDINGS: Brain: No hemorrhage. No mass effect. Cerebral ventricles: No ventriculomegaly. Paranasal sinuses: Inflammatory changes in the sinuses. Mastoid air cells: Visualized mastoid air cells are well aerated. Bones: No acute fracture. Soft tissues: Mild left supraorbital soft tissue swelling IMPRESSION: No evidence of acute intracranial hemorrhage. COMMENTS: Please note that noncontrast head CT is not sensitive for the detection of ischemic infarct. If ischemic infarct is of clinical concern, additional imaging with CTA head/neck and brain MRI is recommended if capable.
--- NOTE | 2025-05-08 19:23 | ED_ITS ---
<Statement entered by Danni Ceja DO - 05/09/25 02:07> I was consulted by the MISSY, and we discussed the complexity of problems being addressed. I approve the treatment and management plan for this patient's care in the emergency department, thus performing a substantial portion of the medical decision making. Danni Ceja DO Discharge Plan Disposition Patient Disposition: Home, Self-Care Prescriptions Prescriptions: No Action epinephrine 0.3 mg/0.3 mL syringe 0.3 mg SQ Q5-15M PRN (Reason: anaphylaxis) Qty: 2 2RF Rx Instructions: do not exceed 2 doses per episode nitroglycerin 0.4 mg tablet, sublingual sublingual Patient Comments: DISSOLVE ONE TABLET UNDER THE TONGUE EVERY 5 MINUTES NEEDED FOR CHEST PAIN. DO NOT EXCEED A TOTAL OF 3 DOSES IN 15 MINUTES hydrochlorothiazide 12.5 mg tablet 12.5 mg PO DAILY Qty: 90 2RF losartan 100 mg tablet 100 mg PO DAILY Qty: 90 3RF omeprazole 20 mg capsule,delayed release(DR/EC) See Rx Instructions .ROUTE .COMPLEX Qty: 90 3RF Dose Instruction: Take 1 capsule by mouth once daily Rx Instructions: Take 1 capsule by mouth once daily rosuvastatin 5 mg tablet See Rx Instructions .ROUTE .COMPLEX Qty: 90 2RF Dose Instruction: Take 1 tablet by mouth once daily Rx Instructions: Take 1 tablet by mouth once daily sumatriptan succinate [Imitrex] 50 mg tablet See Rx Instructions PO .COMPLEX Qty: 9 2RF Rx Instructions: take 1 tab at onset of headache; if no relief may repeat 1 tab after at least 2 hrs; max = 4 tabs/24 hr PO aspirin [Adult Low Dose Aspirin] 81 mg tablet,delayed release (DR/EC) 81 mg PO DAILY Qty: 90 2RF lidocaine 5 % adhesive patch,medicated 1 patch topical DAILY Qty: 15 0RF Rx Instructions: leave on most painful area for up to 12 hrs escitalopram oxalate [Lexapro] 10 mg tablet 10 mg PO DAILY Qty: 90 2RF Referrals Follow up/Referrals: Kendrick Lynch APRN [Primary Care Provider, Family Practice] - See instructions Clinical Impressions Clinical Impression: Fall Print Language Print Language: [place] Discharge ED Provider: Danni Ceja General Adult HPI General Chief complaint: Fall Stated complaint: fell and has lasceration to forehead and nose Time Seen by Provider: 05/08/25 19:12 History of Present Illness HPI narrative: Leanna De La Rosa is a 70-year-old female who presents emergency room tonight with complaints of a fall. Patient was looking at [place] lights this evening, tripped, fell, and hit her forehead on the concrete. Has an abrasion to her forehead, mild bruising to her nose. Nose has no pain. Patient denies any LOC. Does take an aspirin daily. No neck or back pain. Has absolutely no other pain complaints anywhere else. No vision changes, no blurry vision. No weakness, no unilateral numbness, tingling. No focal neurodeficits, no facial droop. Denies any dizziness or lightheadedness prior to the event, no syncopal events noted. Does complain of some pain at her forehead. Complains of a mild headache. No other complaints at this time. Related Data Home Medications ?Medication ?Instructions ?Recorded ?Confirmed nitroglycerin 0.4 mg sublingual mg sublingual 06/02/23 04/22/25 tablet Previous Rx's ?Medication ?Instructions ?Recorded epinephrine 0.3 mg/0.3 mL 0.3 mg (0.3 mL) SQ Q5-15M IL N 09/27/22 injection syringe anaphylaxis #2 ea aspirin 81 mg tablet,delayed 81 mg PO DAILY #90 tabs 0 01/29/25 release (Adult Low Dose Aspirin) hydrochlorothiazide 12.5 mg tablet 12.5 mg PO DAILY #9 0 tabs 01/29/25 losartan 100 mg tablet 100 mg PO DAILY #90 tabs omeprazole 20 mg capsule,delayed See Rx Instructions . Route 01/29/25 release .COMPLEX #90 caps rosuvastatin 5 mg tablet See Rx Instructions .Route 0 01/29/25 .COMPLEX #90 tabs sumatriptan succinate 50 mg tablet See Rx Instructions PO .COMPLEX #9 01/29/25 (Imitrex) tabs lidocaine 5 % topical patch 1 patch topical DAILY #15 ea 04/22/25 escitalopram oxalate 10 mg tablet 10 mg PO DAILY #90 t abs 04/23/25 (Lexapro) Allergies Allergy/AdvReac Type Severity Reaction Status Date / Time bee venom protein (honey bee) Allergy Severe Anaphylaxis Verified 04/22/25 15:49 Penicillins (PENICILLINS) Allergy Unknown Unknown Verified 04/22/25 15:49 allergy reaction doxycycline AdvReac Mild Vomiting Verified 04/22/25 15:49 [facility] Disclaimer: The information contained in this section may have been updated after the patient was seen, as this information can be updated by other users. Social History Smoking Status: Never smoker alcohol intake: never substance use type: denies use current occupational status: other Travel in the last 8 weeks?: None household members: none housing: apartment Have you lived/traveled outside US in past 30 days?: No Contact w/someone who lives/traveled outside US past 30 days?: No Exposure to someone with infectious disease in past 14 days?: No Do you have a fever (greater than 100.4 F or 38 C)?: No Have you tested positive for COVID-19?: No Exposed to someone with COVID-19 in past 14 days?: No Do you have a sore throat?: No Do you have a cough?: No Do you have any weakness?: No Do you have any diarrhea?: No Are you experiencing any unusual bleeding?: No Do you have any muscle aches/pain?: No Do you have any abdominal pain?: No Are you experiencing loss of taste or smell?: No Other Medical History Have you received the Flu Vaccine for this season: No Have you received the Pneumonia Vaccine: Yes ROS Obtained: Yes All systems reviewed & no additional complaints except as documented Physical Exam General General appearance: alert and in no apparent distress Head Head exam: other (Superficial abrasion and ecchymosis noted to the left forehead) Eye Eye exam: Present normal appearance, PERRL and EOMI ENT ENT exam: Present normal exam, normal oropharynx, mucous membranes moist, TM's normal bilaterally, normal external ear exam and other (Mild ecchymosis noted to the bridge of the nose from hitting the concrete with her glasses in place, nose is not tender to palpation) Neck Neck exam: Present normal inspection, full ROM and trachea midline; Absent meningismus or lymphadenopathy Chest Chest inspection: Present normal inspection and symmetric chest wall rise; Absent tenderness Respiratory Respiratory exam: Present normal lung sounds bilaterally; Absent respiratory di stress Cardiovascular Cardiovascular exam: Present regular rate and normal rhythm; Absent JVD Abdominal Exam Abdominal exam: Present soft and normal bowel sounds; Absent distention, tenderness or guarding Extremities Exam Extremities exam: Present normal inspection, full ROM and normal capillary refill; Absent calf tenderness Back Exam Back exam: Present normal inspection; Absent tenderness Neurological Exam Neurological exam: Present alert and oriented X3 Psychiatric Psychiatric exam: Present normal affect and normal mood Lymphatic Lymphatic Findings: no adenopathy Medical Decision Making Medical Records Screening: Per USPSTF and CDC recommendations, given the prevalence of disease in our region, it is our hospital?s policy to screen for HIV and viral Hepatitis for all patients aged 18 and over and those with ongoing risk factors. Jason Inquiry Pt receiving controlled substance: No Vital Signs: 05/08/25 19:02 Temperature 98.1 F Temperature Source Oral Pulse Rate [Right] 66 Respiratory Rate 16 Blood Pressure [Right Arm] 118/68 Blood Pressure Mean [Right Arm] 84 Blood Pressure Source [Right Arm] Automatic Cuff Blood Pressure Position [Right Arm] Sitting 02 Sat by Pulse Oximetry 97 Oxygen Delivery Method Room Air Orders (Tests/Meds): ORDERS Category Date Time Status CT head/brain wo con Stat Cat Scan 05/08/25 19:22 Completed Medical Decision Narrative: In summary patient is an 70-year-old female who presents emergency department for evaluation of mechanical fall striking her head. Patient is hemodynamically stable upon arrival, afebrile. Unremarkable nonfocal physical exam except for an abrasion to her left forehead with some ecchymosis, ecchymosis noted to the bridge of her nose. Differential diagnosis includes facial fracture, subdural hematoma, subarachnoid hemorrhage. Initial workup will be conducted with CT of the head without contrast. Initial interventions include multimodal pain management. Initial workup reviewed by me CT of the head unremarkable for intracranial hemorrhage. Lab work was considered but patient did not have a syncopal epi sode, no complaint of fever, cough, chest pain, shortness of breath. Simply tripped and fell, does take aspirin daily. Upon repeat evaluation patient continues to be pain-free, not complaining of a headache, blurry vision, double vision. No complaints noted at this time.. Given this patient appropriate for discharge at this time. Can take any Motrin or Tylenol for discomfort. Strict return precautions were given. Critical Care Critical Care Time Critical Care Time: No
--- OUTSIDE RECORDS SUMMARY | 2025-05-08 19:30 | XMS_ITS | Clinical Summary ---
Author Organization Healthcare Address [address] [place] [address] Care Team Providers Care Manager Of Organizational Development Name Role Phone Trini Sarmiento APRN Primary Care Provider Social History Tobacco Use Types Packs/Day Years Used Date Smoking Tobacco: Every Day Alcohol Use Standard Drinks/Week Comments Yes 0 (1 standard drink = 0.6 oz pure alcohol) Alcoholic Drinks/day: Social alcohol use Comments Unknown Sex and Gender Information Value Date Recorded Sex Assigned at Not on file Legal Sex Female 8:56 PM EDT Gender Identity Not on file Sexual Orientation Not on file Last Filed Vital Signs Vital Sign Reading Time Taken Comments Blood Pressure - - Pulse - - Temperature - - Respiratory Rate - - Oxygen Saturation - - Inhaled Oxygen Concentration - - Weight 62.3 kg (137 lb 6 oz) 04/18/2013 8:51 AM EST Height 165.1 cm (5' 5 ) 04/18/2013 8:51 AM EST Body Mass Index 22.86 04/18/2013 8:51 AM EST Plan of Treatment Not on file Care Teams Manager Of Organizational Development Relationship Specialty Start Date End Date Trini Sarmiento APRN [address] [place] [address] PCP - General 09/26/20
--- OUTSIDE RECORDS SUMMARY | 2025-05-08 19:30 | XMS_ITS | Encounter Summary ---
Author Organization [facility] Address [address] [place] [address] Care Team Providers Care Film Processing Utility Worker Name Role Phone Trav Alexandre MD Primary Care Provider [phone] Encounter Details Date Type Department Care Team (Late st Contact Info) Description 12/19/2014 External CPT II WRAPPER COUNTER - [facility] Social History Tobacco Use Types Packs/Day Years Used Date Smoking Tobacco: Never Assessed Comments Unknown Sex and Gender Information Value Date Recorded Sex Assigned at Not on file Legal Sex Female 1:31 PM EDT Gender Identity Not on file Sexual Orientation Not on file documented as of this encounter Plan of Treatment Not on file documented as of this encounter Visit Diagnoses Not on filedocumented in this encounter Care Teams Film Processing Utility Worker Relationship Specialty Start Date End Date Trav Alexandre MD [address] [id number] PCP - General Emergency Medicine 10/21/22 documented as of this encounter
--- OUTSIDE RECORDS SUMMARY | 2025-05-08 19:30 | XMS_ITS | Encounter Summary ---
Author Organization [facility] Address [address] [place] [address] Care Team Providers Care Hot Strip Finisher Name Role Phone Trav Alexandre MD Primary Care Provider [phone] Encounter Details Date Type Department Care Team (Late st Contact Info) Description 05/25/2013 External CPT II JEWELRY FACER - [facility] Social History Tobacco Use [...] on filedocumented in this encounter Care Teams Hot Strip Finisher Relationship Specialty Start Date End Date Trav Alexandre MD [address] [id number] PCP - General Emergency Medicine 10/21/22 documented as of this encounter
--- OUTSIDE RECORDS SUMMARY | 2025-05-08 19:31 | XMS_ITS | Clinical Summary ---
Author Organization [facility] Address [address] [place] [address] Care Team Providers Care Letterer Name Role Phone Trav Alexandre MD Primary Care Provider [phone] Allergies Active Allergy Reactions Criticality Noted Date Comments Amoxicillin Unknown - Low Severity Low 10/21/2022 Ciprofloxacin Nausea And Vomiting Low 03/29/2019 Penicillins Unknown - Low Severity Low 10/21/2022 Statins Nausea And Vomiting Low 03/29/2019 Medications rosuvastatin (CRESTOR) 5 MG tablet Take 1 tablet by mouth Daily. 09/27/2022 Active omeprazole (priLOSEC) 20 MG capsule Take 1 capsule by mouth Daily. 09/27/2022 Active aspirin 81 MG EC tabletIndication s:Coronary artery disease involving [place] coronary artery of [place] heart, unspecified whether angina present Take 1 tablet by mouth Daily. 90 tablet 3 02/06/2023 Active lisinopril (PRINIVIL,ZESTRI L) 20 MG tabletIndication s:Hypertension, essential Take 1 tablet by mouth Daily. 90 tablet 3 02/06/2023 Active nitroglycerin (NITROSTAT) 0.4 MG SL tabletIndication s:Coronary artery disease involving [place] coronary artery of [place] heart, unspecified whether angina present 1 under the tongue as needed for angina, may repeat q5mins for up three doses 100 tablet 11 02/06/2023 Active Active Problems No known active problems Family History Medical History Relation Name Comments No Known Problems Father No Known Problems Mother Relation Name Status Comments Father Mother Alive Social History Tobacco Use Types Packs/Day Years Used Date Smoking Tobacco: Every Day Cigarettes 0.5 20 Started: 12/08/1996; Last attempted to quit: 12/08/2016 Passive Smoke Exposure: Current Smokeless Tobacco: Never Tobacco Cessation:Ready to Q uit: No; Counseling Given: No Alcohol Use Standard Drinks/Week Comments No 0 (1 standard drink = 0.6 oz pur e alcohol) Abuse Screen Answer Date Recorded Unsafe at Home or Work/School Not on file Feels Threatened by Someone? Not on file 03/2023 Does Anyone Keep You from Co ntacting Others or Doint Things Outside the Home? Not on file 02/23/2023 Physical Sign of Abuse Present Not on file 1 Housing Stability Answer Date Recorded Current Living Arrangements Not on file 02/13 Potentially Unsafe Housing Conditions Not on tim e 02/23/2023 Family and Community Support Answer Jaren e Recorded Help with Day-to-Day Activities Not on file 02/23/2023 Lonely or Isolated Not on file 02/23/2023 Employment Answer Date Recorded Do you want help finding or keeping work or a winnie b? Not on file 02/23/2023 Disabilities Answer Date Recorded Concentrating, Remembering, or Making Decisions Difficulty Not on file 02/23/2023 Doing Errands Independently Difficulty Not on fi le 02/23/2023 Education Answer Date Recorded Help with school or training? Not on file Preferred Language Not on file 02/23/2023 Comments Unknown Sex and Gender Information Value Date Recorded Sex Assigned at Not on file Legal Sex Female 1:31 PM EDT Gender Identity Not on file Sexual Orientation Not on file Last Filed Vital Signs Vital Sign Reading Time Taken Comments Blood Pressure 140/78 02/03/2023 12:33 PM EDT Pulse 72 02/03/2023 12:31 PM EDT Temperature - - Respiratory Rate - - Oxygen Saturation 98% 02/03/2023 12:31 PM EDT Inhaled Oxygen Concentration - - Weight 65.8 kg (145 lb) 02/03/2023 12:33 PM EDT Height 167.6 cm (5' 6 ) 02/03/2023 12:33 PM EDT Body Mass Index 23.4 02/03/2023 12:33 PM EDT Plan of Treatment Health Maintenance Due Date Last Done Comments DXA SCAN 1955 Pneumococcal Vaccine 50+ (1 of 2 - PCV) 1974 MAMMOGRAM 1995 COLOGUARD 2000 COLON CANCER SCREENING 5 YEA R SIGMOIDOSCOPY 2000 COLONOSCOPY 2000 [address] CANCER SCREENING 2000 CT COLONOGRAPHY 2000 FECAL OCCULT BLOOD TEST 2000 FIT Testing (1 year) 2000 ZOSTER VACCINE (1 of 2) 2005 ANNUAL WELLNESS VISIT 02/08/2017 HEPATITIS C SCREENING 02/08/2017 COVID-19 Vaccine (3 - Modern a risk series) 04/08/2021 03/11/2021, 09/10/2020, 08/13/2020 INFLUENZA VACCINE 12/14/2024 03/12/2022, 05/17/2016 TDAP/TD VACCINES (2 - Td or Tdap) 01/11/2028 [id number] Insurance MEDICAID [place] [id number] MEDICARE ADVANTAGE Care Teams Letterer Relationship Specialty Start Date End Date Trav Alexandre MD [address] [place] [address] PCP - General Emergency Medicine 6/8/23
[2025-05-08 21:27] VITALS: BP 118/78; PULSE 74; RESP 18; TEMP 37.2; O2SAT 98
== END 2025-05-08 21:31 | disposition home or self-care (01) ==
PROVIDERS: Emergency Provider Student in an Organized Health Care Education/Training Program; PCP Nurse Practitioner Family
DX: S00.33XA Contusion of nose, initial encounter (principal); S00.81XA Abrasion of other part of head, initial encounter; W01.10XA Fall on same level from slipping, tripping and stumbling with subsequent striking against unspecified object, initial encounter
CPT/HCPCS: 70450; 99284